=== PATIENT | male | born 1935 | race Caucasian/White ===

== ENCOUNTER → 2018-10-17 | Outpatient (CLI) | payer MEDICARE, BC ==
--- NOTE | 2018-10-17 11:30 | XR ---
EXAMINATION TYPE: XR chest 2V DATE OF EXAM: 10/17/2018 COMPARISON: NONE HISTORY: Presurgical study. Cough. TECHNIQUE: Frontal and lateral views of the chest are obtained. FINDINGS: There is moderate to severe biapical pleural/parenchymal scarring. There are surgical clip s bilateral hilar level. There is background chronic parenchymal change bilaterally most prominent i n the apices. There is no suspicious focal airspace opacity or pneumothorax seen bilaterally. Bluntin g right costophrenic angle suggests small pleural thickening or effusion. The cardiac silhouette size is within normal limits. There are old left lateral rib fracture deformities. IMPRESSION: Chronic parenchymal and surgical changes without acute pulmonary process.
[2018-10-17 11:42] LABS: Basophils % (A) 1 %; Eosinophils # (A) 0.4 k/uL (0-0.7); Eosinophils % (A) 9 %; HCT 39.4 % (39.0-53.0); HGB 12.7 gm/dL (13.0-17.5); Lymphocytes # (A) 1.4 k/uL (1.0-4.8); Lymphocytes % (A) 27 %; MCH 30.2 pg (25.0-35.0); MCHC 32.4 g/dL (31.0-37.0); MCV 93.4 fL (80.0-100.0); Mean Platelet Volume 7.4; Monocytes # (A) 0.4 k/uL (0-1.0); Monocytes % (A) 9 %; Neutrophils # (A) 2.7 k/uL (1.3-7.7); Neutrophils % (A) 54 %; Platelet Count 236 k/uL (150-450); RBC 4.22 m/uL (4.30-5.90); RDW 14.2 % (11.5-15.5); WBC 5.1 k/uL (3.8-10.6)
[2018-10-17 11:51] LABS: Appearance,Urine Clear (Clear); Bilirubin,Urine Negative (Negative); Blood,Urine Small (Negative); Color,Urine Yellow; Glucose,Urine (UA) Negative (Negative); Hyaline Casts,Urine 6 /lpf (0-2); Ketones,Urine Negative (Negative); Leukocyte Esterase,Urine Negative (Negative); Mucus,Urine Few /hpf; Nitrite,Urine Negative (Negative); PH, Urine 6.5 (5.0-8.0); Protein,Urine Negative (Negative); RBC,Urine 3 /hpf (0-5); Specific Gravity,Urine 1.018 (1.001-1.035); WBC,Urine <1 /hpf (0-5)
[2018-10-17 12:00] LABS: ALT 11 U/L (21-72); AST 22 U/L (17-59); African American GFR (CKD) >90 (>60 ml/min/1.73 sqM); Albumin 3.9 g/dL (3.5-5.0); Alkaline Phosphatase 54 U/L (38-126); Anion Gap 7 mmol/L; Blood Urea Nitrogen 15 mg/dL (9-20); Calcium 9.3 mg/dL (8.4-10.2); Carbon Dioxide 30 mmol/L (22-30); Chloride 103 mmol/L (98-107); Glucose 88 mg/dL (74-99); Potassium 4.6 mmol/L (3.5-5.1); Sodium 140 mmol/L (137-145); Total Bilirubin 0.7 mg/dL (0.2-1.3); Total Protein 7.1 g/dL (6.3-8.2)
== END | disposition home or self-care (01) ==
LOC: LABPAT 10:30
PROVIDERS: ATTEND Urology
DX: Z01.818 Encounter for other preprocedural examination (principal); Z01.812 Encounter for preprocedural laboratory examination; C64.1 Malignant neoplasm of right kidney, except renal pelvis; R31.29 Other microscopic hematuria; I10 Essential (primary) hypertension; R05 Cough
CPT/HCPCS: 71046; 80053; 81001; 85025; 86850; 86900; 86901; 87086; 93005

== ENCOUNTER 2018-10-24 07:30 | Inpatient (IN) | payer MEDICARE, BC ==
--- NOTE | 2018-10-23 12:57 | P.GSHP ---
History of Present Illness H&P Date: 10/23/18 82 yo gentleman whom I saw for a second opinion about a right renal mass 3 cm Had a bosniak 2 cm right renal cyst treated with microwave 3 years ago It appears to have reappeared. On recent mri ther appears to be a renal cell cancer deep in the right kidney WE discussed at length treatment options including observation, percutaneous ablation partial and radical nephrectomy Open vs robotic nephrectomy He has chosen to have me do a right radical nephrectomy the risks have been discussed. - Respiratory Comment: history of cancer of the lung in remission Respiratory: Reports congestion, Reports dyspnea - Genitourinary (Male) Comment: history of cancer of the prostate- remission Genitourinary: Reports as per HPI Past Medical History Past Medical History: Cancer, COPD, Hyperlipidemia, Prostate Disorder Additional Past Medical History / Comment(s): LUNG CA LLL 2008, ULL 2010. ON O2 2L @ HS. PROSTATE CA 1998, HAD RADIATION SEED IMPLANT. BORDERLINE ELEV CHOLESTEROL. POSS RT KIDNEY CA CURRENTLY. History of Any Multi-Drug Resistant Organisms: None Reported Additional Past Surgical History / Comment(s): WILDER LUNG REMOVAL, ULL LUNG REMOVAL. PROSTATE SEED IMPLANT. Past Anesthesia/Blood Transfusion Reactions: No Reported Reaction Smoking Status: Former smoker - Past Family History Sister(s) Family Medical History: Cancer Medications and Allergies Home Medications Medication Instructions Recorded Confirmed Type Albuterol Nebulized [Ventolin 2.5 mg INHALATION QID 10/19/18 10/19/18 History Nebulized] Fluticasone Propion/Salmeterol 1 puff INHALATION BID 10/19/18 10/19/18 History [Wixela 250-50 Inhub] Allergies Allergy/AdvReac Type Severity Reaction Status Date / Time budesonide [From Symbicort] AdvReac IRREGULAR Verified 10/19/18 14:30 HEART BEAT formoterol [From Symbicort] AdvReac IRREGULAR Verified 10/19/18 14:30 HEART BEAT Surgical - Exam - General well developed, well nourished, no distress - Eyes PERRL - ENT no hearing loss - Neck no masses, trachea midline - Respiratory normal expansion, normal respiratory effort - Cardiovascular Rhythm: regular - Abdomen Abdomen: soft, non tender - Genitourinary normal penis with no external lesions, testicles present - Integumentary no rash, no growths - Neurologic normal coordination, normal sensation - Musculoskeletal normal gait, normal posture - Psychiatric oriented to time, oriented to person, oriented to place, speech is normal, memory intact Results - Imaging CT scan - abdomen: report reviewed, image reviewed CT scan - pelvis: report reviewed, image reviewed Assessment and Plan Assessment: Impression: Right renal mass, probable renal cell ca Plan RIght radical nephrectomy
[~2018-10-24 07:30] MED LIST: HYDROmorphone 0.5 MG/0.5 ML SYRINGE IVP PRN; LIDOCAINE 1% 20 ML VIAL (10MG/ML) FOR IV START INTRADERMA PRN; ONDANSETRON 4 MG/2 ML VIAL IVP ONE; ceFAZolin IN SWFI 2 GM/20 ML SYRINGE IVP ONE
[2018-10-24] MEDS ORDERED: MIDAZOLAM (PF) 2 MG/2 ML VIAL IV ONE (08:21)
[2018-10-24] MEDS ORDERED: fentaNYL (PF) 50 MCG/ML 2 ML AMP IV ONE (08:21)
[2018-10-24] MEDS: LACTATED RINGERS 1,000 ML IV SCH (08:42)
[2018-10-24] MEDS ORDERED: diphenhydrAMINE 50 MG/ML 1 ML VIAL IVP PRN (08:49)
[2018-10-24] MEDS ORDERED: NALOXONE 0.4 MG/ML 1 ML VIAL IV PRN (08:49)
[2018-10-24] MEDS ORDERED: PROPOFOL 10 MG/ML 20 ML VIAL IV ONE (10:03)
[2018-10-24] MEDS ORDERED: fentaNYL (PF) 50 MCG/ML 2 ML AMP ONE (10:03)
[2018-10-24] MEDS ORDERED: SUCCINYLCHOLINE CHLORIDE 100 MG/5 ML SYR IV ONE (10:03)
[2018-10-24] MEDS ORDERED: NEOSTIGMINE 1 MG/ML 10 ML VIAL ONE (10:03)
[2018-10-24] MEDS ORDERED: PHENYLEPHRINE-0.9% NACL SYG 1 MG/10 ML SYRINGE ONE (10:03)
[2018-10-24] MEDS ORDERED: GLYCOPYRROLATE 0.2 MG/ML 2 ML VIAL ONE (10:03)
[2018-10-24] MEDS ORDERED: ROCURONIUM BROMIDE 10 MG/ML 10 ML VIAL IV ONE (10:03)
[2018-10-24] MEDS ORDERED: LIDOCAINE 1% INJ 10MG/ML (20 ML MDV) ONE (10:03)
[2018-10-24] MEDS ORDERED: LACTATED RINGERS 1,000 ML IV ONE ×2 (10:07→12:00)
[2018-10-24] MEDS: ROPIVACAINE 250 MG, fentaNYL (PF) 625 MCG in SODIUM CHLORIDE 0.9% 188 ML EPIDURAL PRN (12:10)
--- NOTE | 2018-10-24 12:14 | P.OP ---
Date of Procedure: 10/24/18 Preoperative Diagnosis: Right renal mass probable renal cell carcinoma Postoperative Diagnosis: Same Procedure(s) Performed: Right radical nephrectomy Anesthesia: GETA, epidural Surgeon: Jonathan Mcmahon Stepdown Nurse #1: Ian Farnsworth Estimated Blood Loss (ml): 125 Pathology: other (Kidney) Condition: stable Disposition: PACU Indications for Procedure: The patient is 82. He came from [place] for a second opinion for a right renal mass. 3 years ago he had a percutaneous cryoablation of a right renal mass. It came back significantly. The decision as how to treat it and [place] was not clear. He came for my opinion. I explained him that I felt that tumor needed to be removed. We discussed treatment options. I felt the tumor is too deep to do a partial nephrectomy. We discussed open versus laparoscopic nephrectomy. He wishes me to proceed with an open nephrectomy Description of Procedure: The patient is brought to the operating suite. He is given an epidural followed by a general endotracheal anesthesia. Arboleda catheters introduced sterilely. A right upper quadrant sterile prep and drape was administered. A right chevron incision is made. The rectus and oblique fascias are opened. The peritoneum was opened. The liver is grossly normal. The peritoneum has covered the right kidney and right colon is in an unusual position as is the appendix a. I freed the right colon the omentum off to Road's fascia. Shasha maneuver is moved portion of the duodenum medially. I'm able to come down introitus fascia. It is becoming apparent upon initial dissection of the vena cava that he has aberrant I first identifying a lower pole renal vein and off that is the gonadal vein. The gonadal vein is taken between [address] a vessel loop around the lower pole gonadal vein. As I margin superiorly on the vena cava to more renal veins are identified one posterior and one superior. 2 ties were placed around them for stays. I then identify 2 renal arteries. There then identified Tied and doubly ligated in transected. I then doubly ligate the 3 renal veins and transect them. There is also a lumbar vein that is taken between 2-0 silk ties. I then freed the kidney and drug's off the vena cava inferiorly and superiorly. I March on top of the kidney preserving the adrenal gland. I March inferiorly the kidney and transect the ureter between hemoclips as well as the gonadal vein between hemoclips. I elevate the kidney off the body wall. The peritoneum was incised laterally. Posterior laterally is a previous percutaneous ablation tract that is transected the. I then deliver the kidney f rom the wound. There is no active bleeding. The bowel was allowed to fall back up in the right upper quadrant. The wound was closed with 3 layers and #1 Vicryl. The skin is stapled the patient is awake and returned recovery room good condition. Blood loss is 125 mL.
[2018-10-24 15:00] VITALS: BMI 23.6
[2018-10-24] MEDS: DEXTROSE 5%-0.45% NACL 1,000 ML IV SCH ×2 (15:04→23:05)
[2018-10-24] MEDS: ALBUTEROL NEBULIZED 2.5 MG/3 ML INHALATION SCH ×2 (17:23→21:44)
[2018-10-24] MEDS: ONDANSETRON 4 MG/2 ML VIAL IVP PRN (19:21)
[2018-10-24] MEDS: WIXELA INHALATION SCH (22:07)
[2018-10-24] MEDS: [UNRECOGNIZED DRUG - OTHER] INHALATION SCH (22:07)
--- NOTE | 2018-10-25 07:05 | P.PN ---
Subjective Progress Note Date: 10/25/18 The patient is in his first postoperative day from a right radical nephrectomy. His vital signs are stable. His pain is under control. He had some skin edge bleeding that has subsided. His abdomen was soft. His vital signs are stable. He'll sit today. We'll continue with the supportive care, IV fluids and epidural. Objective - Vital Signs Vital signs: Vital Signs Temp 99.2 F 10/25/18 01:14 Pulse 86 10/25/18 03:45 Resp 18 10/25/18 01:14 BP 136/83 10/25/18 01:14 Pulse Ox 94 L 10/25/18 01:14 Intake & Output 10/24/18 10/25/18 10/25/18 18:59 06:59 18:59 Intake Total 2710 Output Total 310 500 Balance 2400 -500 Intake: IV 2710 Output: Urine 185 500 Estimated Blood Loss 125 Other: Voiding Method Indwelling Catheter Indwelling Catheter
[2018-10-25] MEDS: LACTATED RINGERS 1,000 ML IV SCH (07:43)
[2018-10-25] MEDS: ALBUTEROL NEBULIZED 2.5 MG/3 ML INHALATION SCH ×4 (08:16→19:41)
[2018-10-25] MEDS: WIXELA INHALATION SCH ×2 (08:18→22:47)
[2018-10-25] MEDS: [UNRECOGNIZED DRUG - OTHER] INHALATION SCH ×2 (08:18→22:47)
[2018-10-25 09:47] LABS: Calcium 8.7 mg/dL (8.4-10.2); Potassium 4.2 mmol/L (3.5-5.1)
[2018-10-25] MEDS: DEXTROSE 5%-0.45% NACL 1,000 ML IV SCH ×2 (11:30→15:51)
[2018-10-25] MEDS: ONDANSETRON 4 MG/2 ML VIAL IVP PRN ×2 (11:30→20:13)
--- NOTE | 2018-10-25 21:49 | P.PN ---
Progress Note - Text Progress Note Date: 10/25/18 82 yo male s/p Right Radical Nephrectomy POD#1, epidural catheter day #2. Solution of Ropivacaine 0.1% and Fentanyl 2.5mcq/ml. Rate currently at 6ml/hr. Vital signs stable, VAS 2/10 in severity and 3/10 with movement. No pruritis, no n/v, no motor/sensory deficits. Catheter site looks clean/dry/intact. Plan is continue with current settings.
[2018-10-25] MEDS: ROPIVACAINE 250 MG, fentaNYL (PF) 625 MCG in SODIUM CHLORIDE 0.9% 188 ML EPIDURAL PRN (23:13)
[2018-10-26] MEDS: ONDANSETRON 4 MG/2 ML VIAL IVP PRN ×3 (05:49→22:21)
[2018-10-26] MEDS: DEXTROSE 5%-0.45% NACL 1,000 ML IV SCH ×2 (07:29→20:02)
--- NOTE | 2018-10-26 07:55 | P.PN ---
Progress Note - Text Progress Note Date: 10/26/18 Patient is 2 days post right radical nephrectomy. The patient is afebrile and normotensive. He denies shortness of breath. His pain has been minimal with the epidural catheter and he is tolerating clear liquids. He appears to have some congestion however his O2 sat on 3 L this morning was relatively good at 94%. He has been using his inhalers and was started on incentive spirometry last night. Urine output has been good. Chest-scattered rhonchi-occasional wheezing and left lobe Cardiac-regular rhythm-no murmur Abdomen-soft. No tenderness Impression: Overall the patient is doing well following his right radical nephrectomy however I am concerned in regard to his breathing difficulties. His lung capacity is compromised due to previous surgery for lung cancer and he has underlying COPD. Pulmonary consultation will be obtained and a chest x-ray has been ordered. The patient's epidural catheter will be removed later today and his urethral catheter will also be removed unless it is felt that he needs diuretic therapy. He can be advanced to regular diet.
[2018-10-26] MEDS: ALBUTEROL NEBULIZED 2.5 MG/3 ML INHALATION SCH ×3 (08:44→15:13)
[2018-10-26] MEDS: [UNRECOGNIZED DRUG - OTHER] INHALATION SCH ×2 (08:46→19:26)
[2018-10-26] MEDS: WIXELA INHALATION SCH ×2 (08:46→19:26)
--- NOTE | 2018-10-26 08:50 | XR ---
EXAMINATION TYPE: XR chest 2V DATE OF EXAM: 10/26/2018 COMPARISON: 10/17/2018 HISTORY: 82-year-old male postop congestion TECHNIQUE: AP and lateral views FINDINGS: Heart normal size. Surgical clips at the bilateral shanae. Similar asymmetric elevation right hemidiaph ragm. Simple scattered strandy atelectasis or scarring redemonstrated. No kendrick consolidation or pleu ral effusion. Linear marginated density anteriorly at the mid lung level on the lateral view was not seen previously and is suspected to represent superimposition shadow. No evident pneumothorax on fron deya view. One of the patient's arms is slightly lower than on the comparison exam. There is trace curvilinear air lucency below the right hemidiaphragm. IMPRESSION: 1. Trace curvilinear air density below the right hemidiaphragm suspicious for trace amount of pneumop eritoneum. Probably secondary to recent surgery. Appropriate clinical correlation recommended. Follow -up as indicated. 2. New linear marginated edge anteriorly at the mid chest on the lateral view suspected summation art ifact as the patient's arm is lower than on the previous study. A pneumothorax is not seen on the fro ntal view. Consider repeat high quality lateral view with the arms higher up. 3. Otherwise, chronic changes in the lungs without acute process seen.
--- NOTE | 2018-10-26 10:44 | P.PN ---
Progress Note - Text Progress Note Date: 10/26/18 Postoperative day # 2 status post right-sided nephrectomy ,epidural catheter p laced for postoperative analgesia, patient doing well epidural site okay, patient currently on combination of epidural infusion , infusion rate at 6 ml per hour , patient had no motor deficit epidural site okay , vital signs stable ,VAS 0-2 /10 , patient had no motor or sensory deficit Assessment and plan= post operative day # 2, epidural catheter day#3 patient doing well ,pain well controlled , there is no anesthesia related complications We'll discontinue epidural catheter.
[2018-10-26] MEDS: ACETAMINOPHEN TAB 325 MG TAB PO PRN ×3 (11:33→20:09)
[2018-10-26] MEDS: IPRATROPIUM-ALBUTEROL 3 ML NEB INHALATION SCH ×3 (11:48→19:23)
--- NOTE | 2018-10-26 13:17 | P.CNPUL ---
History of Present Illness Consult date: 10/26/18 Requesting physician: Jonathan Mcmahon Reason for consult: dyspnea Chief complaint: Shortness of breath History of present illness: This is a very pleasant 82-year-old gentleman who follows with Dr. Shirley as his primary care physician. He has a past medical history of hyperlipidemia, gastric cancer. Previous tobacco dependence, chronic obstructive pulmonary disease, lung cancer and is status post right lower lobe ectomy in 2008, left upper lobectomy in 2010. He follows with a whistle punk in the [facility]. He is on Wixela and albuterol. He is also on home oxygen mainly in the [facility]. He was found to have a right renal mass and probable right renal cell carcinoma. He presented here on 10/24/2018 for a right radical nephrectomy performed by Dr. Mcmahon. We're consulted today with complaints of increasing shortness of breath. Chest x-ray reveals trace curvilinear area densely below the right hemidiaphragm suspicious for trace amount of pneumoperitoneum. Suspect secondary to recent surgery. No pneumothorax detected. Otherwise, chronic changes in the lungs without acute process seen. Seen today in the regular medical floor. He sitting up in a chair at the bedside. He does have a loose productive cough of clear sputum. He is working well with the incentive spirometer. Currently requiring oxygen at 3 L/m per nasal cannula. He is currently on his Wixela and albuterol. Review of Systems REVIEW OF SYSTEMS: CONSTITUTIONAL: Denies any recent significant weight loss or weight gain. EYES: Denies change in vision. EARS, NOSE, MOUTH, THROAT: Denies headaches, denies sore throat. CARDIOVASCULAR: Denies chest pain, palpitations or syncopal episodes. RESPIRATORY: Positive for shortness of breath, cough, congestion hemoptysis. GASTROINTESTINAL: Denies change in appetite, denies abdominal pain GENITOURINARY: Right-sided flank pain postsurgical. MUSKULOSKELETAL: Denies pain, denies swelling. INTEGUMENTARY: Denies rash, denies eczema. NEUROLOGICAL: Denies recent memory loss, no recent seizure activity. PSYCHIATRIC: Denies anxiety, denies depression. HEMATOLOGIC/LYMPHATIC: Denies anemia, denies enlarged lymph nodes. Past Medical History Past Medical History: Cancer, COPD, Hyperlipidemia, Prostate Disorder Additional Past Medical History / Comment(s): LUNG CA LLL 2008, ULL 2010. ON O2 2L @ HS. PROSTATE CA 1998, HAD RADIATION SEED IMPLANT. BORDERLINE ELEV CHOLES TEROL. POSS RT KIDNEY CA CURRENTLY. History of Any Multi-Drug Resistant Organisms: None Reported Additional Past Surgical History / Comment(s): WILDER LUNG REMOVAL, ULL LUNG REMOVAL. PROSTATE SEED IMPLANT. Past Anesthesia/Blood Transfusion Reactions: No Reported Reaction Past Psychological History: No Psychological Hx Reported Smoking Status: Former smoker Past Alcohol Use History: Occasional Additional Past Alcohol Use History / Comment(s): SMOKED 20 YEARS, 1 PPD, QUIT LATE . Past Drug Use History: None Reported - Past Family History Sister(s) Family Medical History: Cancer Medications and Allergies Home Medications Medication Instructions Recorded Confirmed Type Albuterol Nebulized [Ventolin 2.5 mg INHALATION RT-QID 10/19/18 10/24/18 History Nebulized] Fluticasone Propion/Salmeterol 1 puff INHALATION RT-BID 10/19/18 10/24/18 History [Wixela 250-50 Inhub] Allergies Allergy/AdvReac Type Severity Reaction Status Date / Time budesonide [From Symbicort] AdvReac IRREGULAR Verified 10/24/18 07:53 HEART BEAT formoterol [From Symbicort] AdvReac IRREGULAR Verified 10/24/18 07:53 HEART BEAT Physical Exam Vitals: Vital Signs Temp Pulse Pulse Pulse Resp BP Pulse Ox 10/26/18 11:57 88 10/26/18 11:52 84 10/26/18 08:51 92 10/26/18 08:46 96 10/26/18 07:00 98.9 F 91 18 112/69 94 L 10/26/18 01:36 98.8 F 90 17 106/69 92 L 10/25/18 19:53 88 10/25/18 19:39 90 10/25/18 18:46 98.6 F 84 18 104/64 96 10/25/18 16:00 18 10/25/18 15:44 89 10/25/18 15:34 90 10/25/18 13:47 98.3 F 65 99/60 96 Intake and Output 10/25/18 10/26/18 10/26/18 22:59 06:59 14:59 Intake Total 455 744.9 Output Total 350 Balance 105 744.9 Intake: Intake, IV Titration 275 744.9 Amount Dextrose 5%-0.45% NaCl 1, 275 675 000 ml @ 75 mls/hr IV . [id number] [facility] [place] Rx#:[id number] Ropivacaine 250 mg 69.9 fentaNYL (PF) 625 mcg In Sodium Chloride 0.9% 188 ml @ Per Protocol EPIDURAL .Q0M PRN Rx#: [id number] Oral 180 Output: Urine 350 Other: Voiding Method Indwelling Catheter Indwelling Catheter Indwelling Catheter GENERAL EXAM: Alert, fairly comfortable pleasant 82-year-old gentleman in no apparent distress. 3 L nasal cannula. HEAD: Normocephalic. EYES: Normal reaction of pupils, equal size. NOSE: Clear with pink turbinates. THROAT: No erythema or exudates. NECK: No masses, no JVD. CHEST: No chest wall deformity. LUNGS: Equal air entry with scattered rhonchi bilaterally. CVS: S1 and S2 normal with no audible murmur, regular rhythm. ABDOMEN: No hepatosplenomegaly, normal bowel sounds, no guarding or rigidity. Arboleda catheter in place. SPINE: No scoliosis or deformity SKIN: Dressing to the right chest dry and intact, CENTRAL NERVOUS SYSTEM: No focal deficits, tone is normal in all 4 extremities. EXTREMITIES: There is no peripheral edema. No clubbing, no cyanosis. Peripheral pulses are intact. Results - Laboratory Findings CBC and BMP: 10/25/18 09:16 Abnormal lab findings: Abnormal Labs 10/25/18 09:16 Sodium 135 L Glucose 106 H - Diagnostic Findings Chest x-ray: image reviewed Assessment and Plan Assessment: Impression: #1 Right renal mass suspected renal cell carcinoma, status post right radical nephrectomy, postoperative day #2. Pathology pending. #2 Acute exacerbation of chronic obstructive pulmonary disease. #3 remote history of chronic tobacco dependence. #4 History of lung cancer with previous right upper lobectomy in 2008 and previous left lower lobectomy in 2010. #5 Hyperlipidemia. #6 History of prostate cancer status post radiation. Plan: The patient was seen and evaluated by Dr. Hennessy. Chest x-ray reviewed. He is currently on oxygen at 3 L/m per nasal cannula. Will add IV Solu-Medrol 60 mg every 6 8 hours 3 doses. Add Mucinex. Add DuoNeb inhalations 4 times a day and when necessary. Abdominal binder. Increase his activity as tolerated. Repeat a chest x-ray in the a.m. We'll continue to follow make further recommendations based on his clinical status. I, the cosigning physician, performed a history & physical examination of the patient. Lungs sounds with faint crackles in the posterior bases, diminished. Maintaining good O2 saturations in the 90s on 3 L/m per nasal. I discussed the assessment and plan of care with my nurse practitioner, Sarita Mcghee. I attest to the above note as dictated by her. Time with Patient: Greater than 30
[2018-10-26] MEDS: methylPREDNISolone SOD SUCCI 125 MG/2 ML VIAL IV SCH (16:09)
[2018-10-26] MEDS: guaiFENesin 600 MG TABLET.ER PO SCH (20:02)
[2018-10-27] MEDS: methylPREDNISolone SOD SUCCI 125 MG/2 ML VIAL IV SCH ×4 (00:18→23:11)
[2018-10-27] MEDS: ACETAMINOPHEN TAB 325 MG TAB PO PRN ×3 (00:18→20:31)
--- NOTE | 2018-10-27 07:41 | XR ---
EXAMINATION TYPE: XR chest 2V DATE OF EXAM: 10/27/2018 HISTORY: Shortness of breath. REFERENCE: Previous study dated 10/26/2018. FINDINGS: Lucency under the right hemidiaphragm is no longer visualized. Curvilinear lucency behind t he sternum is present and unchanged from previous. Previously this was thought to represent a summati on density. There is a small amount of atelectasis of the right lung base. There is been previous right-sided tho racic surgery. There is a small right effusion. IMPRESSION: NO SIGNIFICANT INTERVAL CHANGE IN THE APPEARANCE OF THE CHEST
[2018-10-27] MEDS: guaiFENesin 600 MG TABLET.ER PO SCH ×2 (08:11→20:31)
[2018-10-27] MEDS: WIXELA INHALATION SCH ×3 (08:18→22:40)
[2018-10-27] MEDS: [UNRECOGNIZED DRUG - OTHER] INHALATION SCH ×3 (08:18→22:40)
[2018-10-27] MEDS: IPRATROPIUM-ALBUTEROL 3 ML NEB INHALATION SCH ×5 (09:16→22:40)
--- NOTE | 2018-10-27 11:26 | P.DS ---
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 He was admitted for the purpose of right radical nephrectomy. The surgery was performed under general and epidural anesthesia on 10/24. The epidural catheter was removed on 10/26 along with his urethral catheter. He did have some difficulty with congestion most likely related to mucus production and was seen by Dr. Pate who recommended Mucinex and a short course of steroids. The patient was improved the following day. He was discharged on 10/27 at which time he was ambulatory, afebrile and tolerating a regular diet. His pain was minimal and was controlled with Tylenol. The final pathology report confirmed clear cell renal cell carcinoma confined to the kidney. Procedures: Right radical nephrectomy 10/24/2018 Patient Condition at Discharge: Good Plan - Discharge Summary Discharge Rx Participant: No New Discharge Prescriptions: No Action Albuterol Nebulized [Ventolin Nebulized] 2.5 mg INHALATION RT-QID Fluticasone Propion/Salmeterol [Wixela 250-50 Inhub] 1 puff INHALATION RT-BID Discharge Medication List Albuterol Nebulized [Ventolin Nebulized] 2.5 mg INHALATION RT-QID 10/19/18 [History] Fluticasone Propion/Salmeterol [Wixela 250-50 Inhub] 1 puff INHALATION RT-BID 10/19/18 [History] Follow up Appointment(s)/Referral(s): Jonathan Mcmahon MD [STAFF PHYSICIAN] - 10/31/18 1:00 pm Discharge Disposition: HOME SELF-CARE
[2018-10-27] MEDS: DEXTROSE 5%-0.45% NACL 1,000 ML IV SCH ×2 (12:03→20:35)
--- NOTE | 2018-10-27 14:06 | P.PN ---
Subjective Progress Note Date: 10/27/18 Principal diagnosis: Right renal mass status post radical right nephrectomy. COPD exacerbation. This is a very pleasant 82-year-old gentleman who follows with Dr. Shirley as his primary care physician. He has a past medical history of hyperlipidemia, gastric cancer. Previous tobacco dependence, chronic obstructive pulmonary disease, lung cancer and is status post right lower lobe ectomy in 2008, left upper lobectomy in 2010. He follows with a fringe knotter in the [place] area. He is on Wixela and albuterol. He is also on home oxygen mainly in the evenings. He was found to have a right renal mass and probable right renal cell carcinoma. He presented here on 10/24/2018 for a right radical nephrectomy performed by Dr. Mcmahon. We're consulted today with complaints of increasing shortness of breath. Chest x-ray reveals trace curvilinear area densely below the right hemidiaphragm suspicious for trace amount of pneumoperitoneum. Suspect secondary to recent surgery. No pneumothorax detected. Otherwise, chronic changes in the lungs without acute process seen. Seen today in the regular medical floor. He sitting up in a chair at the bedside. He does have a loose productive cough of clear sputum. He is working well with the incentive spirometer. Currently requiring oxygen at 3 L/m per nasal cannula. He is currently on his Wixela and albuterol. the patient is seen today 10/27/2018 in follow-upon the regular medical floor. He is currently resting comfortably in bed. Awake and alert in no acute distress. Still with a loose nonproductive cough. No chills or night sweats. Binder remains in place. Working well with the incentive spirometer.maintaining O2 saturations in the 90s on 3 L/m per nasal cannula. Afebrile. Hemodynamically stable.remains on DuoNeb inhalations, Wixela, Mucinex. Objective - Vital Signs Vital signs: Vital Signs Temp 97.8 F 10/27/18 08:06 Pulse 92 10/27/18 12:40 Resp 15 10/27/18 08:06 BP 126/74 10/27/18 08:06 Pulse Ox 96 10/27/18 08:06 Intake & Output 10/26/18 10/27/18 10/27/18 18:59 06:59 18:59 Intake Total 990 280 Output Total 750 1000 Balance -750 -10 280 Intake: Intake, IV Titration 750 Amount Dextrose 5%-0.45% NaCl 1, 750 000 ml @ 75 mls/hr IV . [id number] [facility] Rx#:[id number] Oral 240 280 Output: Urine 750 1000 Uretheral (Arboleda) 250 Other: Voiding Method Indwelling Catheter Toilet # Voids 2 1 - Exam GENERAL EXAM: Alert, fairly comfortable pleasant 82-year-old gentleman in no apparent distress. 3 L nasal cannula. HEAD: Normocephalic. EYES: Normal reaction of pupils, equal size. NOSE: Clear with pink turbinates. THROAT: No erythema or exudates. NECK: No masses, no JVD. CHEST: No chest wall deformity. LUNGS: Equal air entry with scattered rhonchi bilaterally. CVS: S1 and S2 normal with no audible murmur, regular rhythm. ABDOMEN: No hepatosplenomegaly, normal bowel sounds, no guarding or rigidity. SPINE: No scoliosis or deformity SKIN: Dressing to the right chest dry and intact, CENTRAL NERVOUS SYSTEM: No focal deficits, tone is normal in all 4 extremities. EXTREMITIES: There is no peripheral edema. No clubbing, no cyanosis. Peripheral pulses are intact. - Labs CBC & Chem 7: 10/25/18 09:16 Assessment and Plan Assessment: Impression: #1 Right renal mass with biopsy-proven renal cell carcinoma, status post right radical nephrectomy, postoperative day #3. Margins negative. #2 Acute exacerbation of chronic obstructive pulmonary disease. #3 remote history of chronic tobacco dependence. #4 History of lung cancer with previous right upper lobectomy in 2008 and previous left lower lobectomy in 2010. #5 Hyperlipidemia. #6 History of prostate cancer status post radiation. Plan: The patient was seen and evaluated by Dr. Hennessy. Chest x-ray reviewed. He is currently on oxygen at 3 L/m per nasal cannula. Not quite back to his baseline. Will continue IV Solu-Medrol 60 mg every 8 hours 3 more doses. Continue bronchodilators and Mucinex. Increase his activity as tolerated. We'll continue to follow and make further recommendations based on his clinical status. I, the cosigning physician, performed a history & physical examination of the patient. Lungs sounds with faint crackles in the posterior bases, diminished. Maintaining good O2 saturations in the 90s on 3 L/m per nasal. I discussed the assessment and plan of care with my nurse practitioner, Sarita Mcghee. I attest to the above note as dictated by her.
[2018-10-28 07:26] VITALS: BP 122/67; RESP 18; TEMP 97.8
[2018-10-28] MEDS: ACETAMINOPHEN TAB 325 MG TAB PO PRN (07:26)
[2018-10-28] MEDS: methylPREDNISolone SOD SUCCI 125 MG/2 ML VIAL IV SCH (07:27)
[2018-10-28] MEDS: guaiFENesin 600 MG TABLET.ER PO SCH (07:27)
[2018-10-28] MEDS: IPRATROPIUM-ALBUTEROL 3 ML NEB INHALATION SCH (08:57)
[2018-10-28 09:01] VITALS: PULSE 88
[2018-10-28] MEDS: WIXELA INHALATION SCH (09:09)
[2018-10-28] MEDS: [UNRECOGNIZED DRUG - OTHER] INHALATION SCH (09:09)
--- NOTE | 2018-10-28 09:55 | P.PN ---
Progress Note - Text Progress Note Date: 10/28/18 The patient is afebrile and normotensive. He says that the additional day of IV steroid treatment has been beneficial for him as far as his breathing. He is tolerating regular diet and ambulating well. His right upper quadrant incision is healing nicely. He will be discharged later today if approved by Dr. Pate and will be seen by Dr. Mcmahon on 06/02 for follow-up.
--- NOTE | 2018-10-28 11:33 | P.PN ---
Subjective Progress Note Date: 10/28/18 On today's evaluation of 10/28/2018 the patient is not having any respiratory distress. He is calm and comfortable. No respiratory distress no cough sputum production. Minimal chest congestion. Surgical site is dry clean and intact. No nausea. No vomiting could not done distention. He is passing flatus. Objective - Vital Signs Vital signs: Vital Signs Temp 97.8 F 10/28/18 07:00 Pulse 88 10/28/18 09:07 Resp 18 10/28/18 07:20 BP 122/67 10/28/18 07:00 Pulse Ox 96 10/28/18 09:19 Intake & Output 10/27/18 10/28/18 10/28/18 18:59 06:59 18:59 Intake Total 640 240 180 Balance 640 240 180 Intake: Oral 640 240 180 Other: Voiding Method Toilet Toilet Toilet # Voids 1 - Exam GENERAL EXAM: Alert, fairly comfortable pleasant 82-year-old gentleman in no apparent distress. 3 L nasal cannula. HEAD: Normocephalic. EYES: Normal reaction of pupils, equal size. NOSE: Clear with pink turbinates. THROAT: No erythema or exudates. NECK: No masses, no JVD. CHEST: No chest wall deformity. LUNGS: Equal air entry with scattered rhonchi bilaterally. CVS: S1 and S2 normal with no audible murmur, regular rhythm. ABDOMEN: No hepatosplenomegaly, normal bowel sounds, no guarding or rigidity. SPINE: No scoliosis or deformity SKIN: Dressing to the right chest dry and intact, CENTRAL NERVOUS SYSTEM: No focal deficits, tone is normal in all 4 extremities. EXTREMITIES: There is no peripheral edema. No clubbing, no cyanosis. Peripheral pulses are intact. - Labs CBC & Chem 7: 10/25/18 09:16 Assessment and Plan Plan: Impression: #1 Right renal mass with biopsy-proven renal cell carcinoma, status post right radical nephrectomy, postoperative day #4. Margins negative. Surgical site is clean. #2 Acute exacerbation of chronic obstructive pulmonary disease, covering #3 remote history of chronic tobacco dependence. #4 History of lung cancer with previous right upper lobectomy in 2008 and previous left lower lobectomy in 2010. #5 Hyperlipidemia. #6 History of prostate cancer status post radiation. Plan Discharge patient home on bronchodilators and Mucinex and incentive spirometer. He is to continue Wixela regarding his COPD. Follow-up with nephrology. 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
== END 2018-10-28 10:14 | disposition home or self-care (01) | DRG 657 ==
LOC: 2ORMAIN 07:31 → 4SSUR 14:08
PROVIDERS: ADMIT Urology; ATTEND Urology
PROC: 0TT00ZZ Resection of Right Kidney, Open Approach (ICD-10-PCS; principal; 2018-10-24 08:45)
DX: C64.1 Malignant neoplasm of right kidney, except renal pelvis (principal); J44.1 Chronic obstructive pulmonary disease with (acute) exacerbation; E78.5 Hyperlipidemia, unspecified; N42.9 Disorder of prostate, unspecified; K44.9 Diaphragmatic hernia without obstruction or gangrene; K21.9 Gastro-esophageal reflux disease without esophagitis; Z85.028 Personal history of other malignant neoplasm of stomach; Z85.118 Personal history of other malignant neoplasm of bronchus and lung; Z85.46 Personal history of malignant neoplasm of prostate; Z92.3 Personal history of irradiation; Z90.2 Acquired absence of lung [part of]; Z87.891 Personal history of nicotine dependence; Z88.8 Allergy status to other drugs, medicaments and biological substances; Z80.9 Family history of malignant neoplasm, unspecified
CPT/HCPCS: 71046; 80048; 86850; 86900; 86901; 88307; 94640